=== PATIENT | male | born 1990 | race Caucasian/White ===

== ENCOUNTER 2018-09-08 21:05 | Emergency (ER) | payer OTHER ==
[~2018-09-08] VITALS: Ht 172.7 cm; Wt 95.3 kg
[2018-09-08 21:22] VITALS: BP 125/82
[2018-09-08] MEDS: Cephalexin 500mg cap ORAL ONE (21:37)
[2018-09-08] MEDS: Tetanus/Diptheria/Pertussis Vaccine 0.5ml Syr IM ONE (21:37)
--- NOTE | 2018-09-08 21:50 | Emergency Room Report ---
History of Present Illness General Chief Complaint: Laceration Source: Patient Present Illness HPI This is a 28-year-old male who is right-hand dominant. He presents with chief complaint of laceration to the finger. He was at work cleaning some wine glasses and it broke. The stem of his glass lacerated his index and middle finger. This occurred just prior to arrival. He has some deformity to the finger. No other injury. Bleeding controlled with pressure. Allergies: Coded Allergies: No Known Allergies (Unverified , 09/08/18) Patient History Past Medical History: none, see triage record Past Surgical History: none Pertinent Family History: none Social History: Denies: smoking Immunizations: other Reviewed Nursing Documentation: PMH: Agreed; PSxH: Agreed Nursing Documentation-PMH Past Medical History: No Stated History Review of Systems Eye: Denies: eye pain, blurred vision ENT: Denies: ear pain, nose congestion, throat swelling Respiratory: Denies: cough, shortness of breath Cardiovascular: Denies: chest pain, palpitations Gastrointestinal: Denies: abdominal pain, diarrhea, nausea, vomiting Musculoskeletal: Reports: joint pain, muscle pain; Denies: back pain Skin: Denies: rash Neurological: Denies: headache, numbness Endocrine: Denies: increased thirst, increased urine Hematologic/Lymphatic: Denies: easy bruising All Other Systems: negative except mentioned in HPI Physical Exam Vital Signs Date Time Temp Pulse Resp B/P (MAP) Pulse Ox O2 Delivery O2 Flow Rate FiO2 09/08/18 21:15 97.9 73 16 133/89 96 Room Air vitals normal Sp02 EP Interpretation: reviewed, normal General Appearance: well appearing, no apparent distress, alert Head: normocephalic, atraumatic Eyes: bilateral eye PERRL, bilateral eye EOMI ENT: hearing grossly normal, normal pharynx Neck: full range of motion, supple, no meningismus Respiratory: chest non-tender, lungs clear, normal breath sounds Cardiovascular #1: regular rate, rhythm, no murmur Gastrointestinal: normal bowel sounds, non tender, no mass, no organomegaly, no bruit, non-distended Musculoskeletal: back normal, gait/station normal, other - Left index finger: He has a superficial was in a laceration on the dorsal aspect of the distal phalanx. Well approximated. Neurologic: alert, oriented x3 Psychiatric: mood/affect normal Skin: warm/dry Procedures Splinting Splinting : Consent: Verbal Location: Finger Pre-Made Type: metal Pre-Proc Neuro Vasc Exam: normal Post-Proc Neuro Vasc Exam: normal Patient Tolerated: Well Complications: None Progress finger splint place with DIP joint and hyperextension position Medical Decision Making Diagnostic Impression: Primary Impression: Laceration of finger, left Qualified Codes: S61.211A - Laceration without foreign body of left index finger without damage to nail, initial encounter Additional Impression: Laceration of left middle finger with tendon involvement ER Course Patient with a finger laceration involving the extensor tendon of the DIP joint. Increased risk for deformity. Will discharge home with hand surgeon referral. Other X-Ray Diagnostic Results Other X-Ray Diagnostic Results : X-Ray ordered: Left finger x-rays # of Views/Limited Vs Complete: 3 View Indication: Pain EP Interpretation: Yes Interpretation: no dislocation, no soft tissue swelling, no fractures Impression: No acute disease Electronically Signed by: Remi Sun MD Last Vital Signs Date Time Temp Pulse Resp B/P (MAP) Pulse Ox O2 Delivery O2 Flow Rate FiO2 09/08/18 21:15 97.9 73 16 133/89 96 Room Air Status: improved Disposition: HOME, SELF-CARE Condition: Stable Scripts Ibuprofen* (MOTRIN*) 600 Mg Tablet 600 MG ORAL THREE TIMES A DAY, #30 TAB 0 Refills Prov: Remi Sun MD 09/08/18 Cephalexin* (KEFLEX*) 500 Mg Capsule 500 MG ORAL TID, #21 CAP Prov: Remi Sun MD 09/08/18 Referrals: NOT CHOSEN IPA/,REFERRING (PCP) Patient Instructions: Laceration Care, Adult Additional Instructions: Elevate finger. Ice pack to the area. Follow-up with your employer in 2-3 days. You will need a referral to see orthopedic/hand surgeon. Return if symptom worsen. Remi Sun MD Sep 08, 2018 21:50
[2018-09-08] MEDS ORDERED: CEPHALEXIN500 MG ORAL (22:30)
[2018-09-08] MEDS ORDERED: IBUPROFEN600 MG ORAL (22:30)
[2018-09-08 22:40] VITALS: BP 129/80
--- NOTE | 2018-09-09 17:25 | Diagnostic Imaging Report ---
Indication: Pain, trauma Technique: 3 views of the left middle finger Comparison: none Findings: No acute fractures. No dislocations. The joint spaces are preserved Impression: Negative
== END 2018-09-08 22:40 | disposition home or self-care (01) ==
LOC: EMR 21:33
DX: S61.213A Laceration without foreign body of left middle finger without damage to nail, initial encounter (principal); S61.211A Laceration without foreign body of left index finger without damage to nail, initial encounter; W25.XXXA Contact with sharp glass, initial encounter; Y92.69 Other specified industrial and construction area as the place of occurrence of the external cause; F17.200 Nicotine dependence, unspecified, uncomplicated; M25.50 Pain in unspecified joint; M79.10 Myalgia, unspecified site; Z23 Encounter for immunization
CPT/HCPCS: 29130; 90471; 90715; 99283